=== PATIENT | male | born 1990 | race Caucasian/White ===

== ENCOUNTER 2017-06-05 10:31 | Emergency (ER) | payer MEDICAID, SELFPAY ==
[2017-06-05 10:32] VITALS: BP 135/101; PULSE 79; RESP 16; TEMP 36.7; O2SAT 100; BMI 22.9
--- NOTE | 2017-06-05 10:52 | ED.VISSUMM ---
- ER Visit Summary Date of Service: 06/05/17 Chief Complaint: Headache History of Present Illness: The patient is a 27 M who reports headache over the occipital portion of his head. He states he has a mild aching sensation but gets sharp shooting pain whenever he flexes his neck or bends over. This sharp pain lasts just a few seconds and then resolves. 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 He has not no of an injury or recent illness. Physical Examination: Vital signs are unremarkable. Head neck examination reveals no external sign of trauma. He has reproducible tenderness at the base of the skull. No skin changes are noted. He has no meningismus. Heart is regular rate and rhythm. Lung sounds are clear. Neuro exam is completely normal. Test Results: [] Emergency Department Course and Treatment: I discussed with the patient that I feel he has a pinched nerve that wraps up onto the occiput. He is in agreement with this. He will be treated with Naprosyn and Flexeril. I do not feel that imaging is beneficial. Treatment Plan: [] Disposition: Discharge Impression: Cephalgia secondary to pinched nerve This note was generated with [employer] dictation software. It may contain incorrect words, spelling, and punctuation that were not noted in review of the chart prior to signing ED Disposition - Plan for ED Patient: Chief Complaint: Headache
--- NOTE | 2017-06-05 10:54 | ED.DEP ---
ED Disposition - Plan for ED Patient: Disposition: Home or Assisted Living Chief Complaint: Headache Instructions: ED Headache Tension Prescriptions: Naproxen [Naprosyn] 500 mg PO BID PRN #20 tablet Cyclobenzaprine [Flexeril] 10 mg PO TID PRN #20 tablet PRN Reason: Muscle Spasm Referrals: Derick Levy MD [STAFF PHYSICIAN] - 1 Week if not improving
== END 2017-06-05 11:13 | disposition home or self-care (01) ==
LOC: ED 11:06
PROVIDERS: Emergency Provider Emergency Medicine; Family Provider Family Medicine; PCP Family Medicine
DX: R51 Headache (principal); G58.8 Other specified mononeuropathies
CPT/HCPCS: 99283

== ENCOUNTER 2018-04-21 09:53 | Emergency (ER) | payer SELFPAY ==
[2018-04-21 09:54] VITALS: BP 137/89; PULSE 82; RESP 18; TEMP 36.6; O2SAT 99; BMI 19.2
--- NOTE | 2018-04-21 10:09 | ED.VISSUMM ---
- ER Visit Summary Date of Service: 04/21/18 Chief Complaint: Right thumb laceration History of Present Illness: The patient is a 28 M who presents for a right thumb laceration that occurred last evening. Patient was washing a glass, and the glass broke, cutting him at the base of the right thumb. Patient controlled the bleeding after about 30 minutes with direct pressure. He states he thoroughly washed the wound. He is here today for evaluation. Tetanus is not up-to-date. 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 He denies any other injuries or complaints. Physical Examination: In bed in no distress. Hemodynamically stable and afebrile. Examination of the right hand shows a 2 cm x 1 cm avulsion flap to the right thumb over the proximal phalanx radial side without any active hemorrhage. Distal cap refill is brisk and sensation is intact on the ulnar and radial side of the thumb. Patient is able to fully flex and extend the IP and the MCP joint. Thumb has full range of motion. Remainder of exam is unremarkable. Test Results: [] Emergency Department Course and Treatment: Patient's thumb laceration will not require any suturing at this point, and it is also been 17 hours since it occurred, thus it would increase risk of infection if it were to be sutured. The wound was cleansed and bacitracin applied. It was bandaged. In order to prevent it from reopening and hemorrhaging again, patient was placed in a Velcro thumb spica splint so that he can return to work without concern of motion of the thumb causing reinjury. Tetanus was updated. Patient discharged home. Treatment Plan: [] Disposition: [] Impression: Right thumb avulsion laceration This note was generated with [employer] dictation software. It may contain incorrect words, spelling, and punctuation that were not noted in review of the chart prior to signing ED Disposition - Plan for ED Patient: Referrals: Derick Levy [Primary Care Provider] -
--- NOTE | 2018-04-21 10:12 | ED.DEP ---
ED Disposition - Plan for ED Patient: Disposition: Home or Assisted Living Instructions: ED Laceration Hand Referrals: Derick Levy [Primary Care Provider] - 3-5 Days if not improving Additional Instructions: Your tetanus was updated. Keep the right thumb cut clean, dry and protected. Apply bacitracin ointment and a bandage to it. Wear the splint as needed for protection of the wound, especially when you are at work. Use the splint until the cut has healed. If you have any worsening of your condition or any new concerning symptoms, please return immediately to the emergency department for another evaluation.
[2018-04-21] MEDS: Diphth,Pertuss(Acell),Tet Vac 0.5 ML Vial IM (10:49)
[2018-04-21] MEDS: BACITRACIN 15 GM Tube 1 APPLIC TOPICAL (10:50)
== END 2018-04-21 10:56 | disposition home or self-care (01) ==
PROVIDERS: Emergency Provider Emergency Medicine; Family Provider Family Medicine; PCP Family Medicine
DX: S61.011A Laceration without foreign body of right thumb without damage to nail, initial encounter (principal); Z72.0 Tobacco use; W25.XXXA Contact with sharp glass, initial encounter; Y93.G1 Activity, food preparation and clean up; Y92.000 Kitchen of unspecified non-institutional (private) residence as the place of occurrence of the external cause; Y99.8 Other external cause status
CPT/HCPCS: 90471; 90715; 99283